=== PATIENT | male | born 1955 | race Caucasian/White ===

== ENCOUNTER 2018-01-22 09:33 | Emergency (ER) | payer OTHER ==
[2012-01-27 11:20] VITALS: BP 142/93
[2018-01-22 09:48] VITALS: O2SAT 97
[2018-01-22] MEDS ORDERED: Sodium Chloride 0.9% 1000 ML 1,000 ML IV SCH (10:00)
[2018-01-22] MEDS ORDERED: Zofran 4 MG/2 ML VIAL IV ONE (10:05)
[2018-01-22 10:07] LABS: BASOPHIL % 0.4 % (0.0-0.4); Basophil (Absolute #) 0.03 (0-0.4); Eosinophil % 1.3 % (0.00-5.0); Granulocyte Absolute (ANC) 5.96 (1.4-6.9); Granulocytes % 74.5 % (36.0-66.0); Hematocrit 46.9 % (42-50); Lymphocyte (Absolute #) 1.31 (1.0-4.6); Lymphocytes % 16.4 % (24.0-44.0); Mean Cell Volume 85.6 fl (78-100); Mean Corpuscular Hemoglobin 29.2 pg (26-32); Mean Corpuscular Hgb Concent. 34.1 g/dl (32-36); Mean Platelet Volume 8.7 fl (6-9.5); Monocyte (Absolute #) 0.59 (0.0-1.3); Monocytes % 7.4 % (0.0-12.0); Platelet Count 260 K/mm3 (150-450); Red Blood Count 5.48 M/mm3 (4.1-5.6); Red Cell Distribution Width 13.1 % (11.5-14.0)
[2018-01-22] MEDS ORDERED: Zofran 4 MG/2 ML VIAL ONE (10:13)
[2018-01-22] MEDS ORDERED: Sodium Chloride 0.9% 1000 ML 1,000 ML ONE (10:13)
[2018-01-22 10:20] LABS: ALBUMIN 4.7 g/dL (3.5-5.0); ALKALINE PHOSPHATASE 73 U/L (38-126); AMYLASE 69 U/L (30-110); ANION GAP 12.7 MEQ/L (5-15); BLOOD UREA NITROGEN 11 mg/dL (9-20); CHLORIDE 105 mmol/L (98-107); Calcium 9.6 mg/dL (8.4-10.2); Carbon Dioxide 26 mmol/L (22-30); Creatinine 1 0.97 mg/dL (0.66-1.25); Glucose 100 mg/dL (74-106); LIPASE 85 U/L (23-300); Potassium 4.3 mmol/L (3.5-5.1); SGOT/AST 41 U/L (17-59); SGPT/ALT 45 U/L (0-50); SODIUM 139 mmol/L (137-145); Total Protein 7.9 g/dL (6.3-8.2)
--- NOTE | 2018-01-22 10:33 | ERPHSYRPT ---
- History of Present Illness Time Seen by Provider: 01/22/18 10:00 Historian: patient Exam Limitations: clinical condition Patient Subjective Stated Complaint: pt here for pain to left side of abd for 4 weeks now and is beng treated by [employer], and he states pain is not easing Triage Nursing Assessment: pt alert, walked in, resp easy, skin w/d/p, abd soft , no edema, co nausea n vomiting Physician History: PATIENT WITH A HISTORY OF DIVERTICULITIS COMPLAINS OF LEFT-SIDED ABDOMINAL PAIN FOR 4 WEEKS. PATIENT STARTED TAKING LEFT OVER ANTIBIOTICS LEVAQUIN 8 DAYS AGO AND WAS EVALUATED BY HIS PRIMARY CARE PROVIDER 6 DAYS AGO AND PLACED ON ANTIBIOTICS CIPRO AND FLAGYL. STATES HIS PAIN IS A 7/10 ASSOCIATED WITH NAUSEA. DENIES VOMITING, DIARRHEA, FEVER, URINARY SYMPTOMS Timing/Duration: week(s) Activities at Onset: none Quality: cramping, stabbing Abdominal Pain Onset Location: LLQ, suprapubic Pain Radiation: no radiation Severity of Pain-Max: moderate Severity of Pain-Current: moderate Modifying Factors: Improves With: eating Associated Symptoms: loss of appetite, nausea Previous symptoms: same symptoms as today Allergies/Adverse Reactions: Penicillins Allergy (Severe, Verified 01/22/18 09:48) STOPPED BREATHING Sulfa (Sulfonamide Antibiotics) [Sulfa(Sulfonamide Antibiotics)] Allergy (Severe , Verified 01/22/18 09:48) STOPPED BREATHING morphine Allergy (Intermediate, Verified 01/22/18 09:48) hives, vomiting hydrocodone Adverse Reaction (Mild, Verified 01/22/18 09:48) hives, nausea lidocaine Adverse Reaction (Mild, Verified 01/22/18 09:48) Hives Home Medications: Ciprofloxacin HCl [Cipro] 500 mg BID 01/22/18 [History] Metronidazole 500 mg TID 01/22/18 [History] levoFLOXacin [Levofloxacin] 500 mg DAILY 01/22/18 [History] Hx Tetanus, Diphtheria Vaccination/Date Given: No Hx Influenza Vaccination/Date Given: Yes Hx Pneumococcal Vaccination/Date Given: No Immunizations Up to Date: Yes - Review of Systems Constitutional: No Fever, No Chills Eyes: No Symptoms Ears, Nose, & Throat: No Symptoms Respiratory: No Symptoms, No Cough, No Dyspnea Cardiac: No Symptoms, No Chest Pain, No Edema, No Syncope Abdominal/Gastrointestinal: Abdominal Pain, No Nausea, No Vomiting, No Diarrhea Genitourinary Symptoms: No Symptoms, No Dysuria Musculoskeletal: No Symptoms, No Back Pain, No Neck Pain Skin: No Rash Neurological: No Dizziness, No Focal Weakness, No Sensory Changes Psychological: No Symptoms Endocrine: No Symptoms All Other Systems: Reviewed and Negative - Past Medical History Pertinent Past Medical History: Yes Neurological History: No Pertinent History ENT History: No Pertinent History Cardiac History: No Pertinent History Respiratory History: No Pertinent History Endocrine Medical History: No Pertinent History Musculoskeletal History: Osteoarthritis GI Medical History: Diverticulitis History: No Pertinent History Psycho-Social History: No Pertinent History Male Reproductive Disorders: No Pertinent History - Past Surgical History Past Surgical History: Yes Neuro Surgical History: No Pertinent History Cardiac: No Pertinent History Respiratory: No Pertinent History Gastrointestinal: Hemorrhoidectomy Genitourinary: No Pertinent History Musculoskeletal: Orthopedic Surgery Male Surgical History: Vasectomy Other Surgical History: neck disc replaced. bilateral knee scope - Social History Smoking Status: Never smoker How long have you smoked: 2-5years Exposure to second hand smoke: No Drug Use: none Patient Lives Alone: No - Nursing Vital Signs Nursing Vital Signs: Initial Vital Signs Temperature 97.8 F 01/22/18 09:39 Pulse Rate 51 L 01/22/18 09:39 Respiratory Rate 16 01/22/18 09:39 Blood Pressure 143/119 01/22/18 09:39 O2 Sat by Pulse Oximetry 97 01/22/18 09:39 Pain Scale Pain Intensity 7 - Physical Exam General Appearance: mild distress, alert Eye Exam: PERRL/EOMI Ears, Nose, Throat Exam: normal ENT inspection Neck Exam: normal inspection Respiratory Exam: normal breath sounds Cardiovascular Exam: regular rate/rhythm Gastrointestinal/Abdomen Exam: soft, normal bowel sounds, tenderness (LLQ AND SUPRAPUBIC TENDERNESS) Rectal Exam: normal exam, normal rectal tone Back Exam: normal inspection Extremity Exam: normal inspection Neurologic Exam: alert, oriented x 3 SpO2 Interpretation: normal SpO2: 97 Oxygen Delivery: Room Air - CT Exams Abdomen/Pelvis CT Interpretation: Tele-radiologist Report (the gallbladder and bile ducts are normal, no calcified stones no ductal dilatation, kidneys and ureters with subcentimeter cyst of the right with no hydronephrosis. A normal appendix is identified the stomach and small bowel are normal. There is diverticular disease without evidence of acute diverticulitis, no perforation or abscess. the prostate gland is enlarged.) Ordered Tests: Active Orders 24 hr Category Date Time Status IV Insertion STAT Care 01/22/18 09:57 Active ABDOMEN AND PELVIS W CONTRAST [CT] Stat Exams 01/22/18 09:58 Ordered AMYLASE Stat Lab 01/22/18 10:00 Completed CBC W DIFF Stat Lab 01/22/18 10:00 Completed CMP Stat Lab 01/22/18 10:00 Completed LIPASE Stat Lab 01/22/18 10:00 Completed MAGNESIUM Stat Lab 01/22/18 10:00 Completed Occult Blood,Stool Other Stat Lab 01/22/18 10:45 Completed UA W/RFX UR CULTURE Stat Lab 01/22/18 10:45 Completed Medication Summary Generic Name Dose Route Start Last Admin Trade Name Freq PRN Reason Stop Dose Admin Sodium Chloride 1,000 mls @ 500 mls/hr 01/22/18 10:00 01/22/18 10:16 Sodium Chloride 0.9% 1000 Ml IV 02/21/18 09:59 500 mls/hr .Q2H FRANCES Administration Discontinued Medications Generic Name Dose Route Start Last Admin Trade Name Freq PRN Reason Stop Dose Admin Fentanyl Citrate 100 mcg 01/22/18 10:54 01/22/18 10:58 Sublimaze 100 Mcg/2 Ml IV 01/22/18 10:55 100 mcg STAT ONE Administration Fentanyl Citrate Confirm 01/22/18 10:57 Sublimaze 100 Mcg/2 Ml Administered 01/22/18 10:58 Dose 100 mcg .ROUTE .STK-MED ONE Hydromorphone HCl 1 mg 01/22/18 10:35 01/22/18 11:04 Hydromorphone 1 Mg/Ml Ampule IV 01/22/18 10:36 Not Given STAT ONE Ondansetron HCl 4 mg 01/22/18 10:05 01/22/18 10:16 Zofran 4 Mg/2 Ml Vial IV 01/22/18 10:06 4 mg STAT ONE Administration Ondansetron HCl Confirm 01/22/18 10:13 Zofran 4 Mg/2 Ml Vial Administered 01/22/18 10:14 Dose 4 mg .ROUTE .STK-MED ONE Lab/Rad Data: Laboratory Result Diagrams 01/22/18 10:00 01/22/18 10:00 Laboratory Results 01/22/18 01/22/18 01/22/18 Range/Units 10:45 10:45 10:00 WBC (4.0-10.5) K/mm3 RBC (4.1-5.6) M/mm3 Hgb (12.5-18.0) gm/dl Hct (42-50) % MCV (78-100) fl MCH (26-32) pg MCHC (32-36) g/dl RDW (11.5-14.0) % Plt Count (150-450) K/mm3 MPV (6-9.5) fl Gran % (36.0-66.0) % Eos # (Auto) (0-0.5) Absolute Lymphs (auto) (1.0-4.6) Absolute Monos (auto) (0.0-1.3) Lymphocytes % (24.0-44.0) % Monocytes % (0.0-12.0) % Eosinophils % (0.00-5.0) % Basophils % (0.0-0.4) % Absolute Granulocytes (1.4-6.9) Basophils # (0-0.4) Sodium (137-145) mmol/L Potassium (3.5-5.1) mmol/L Chloride (98-107) mmol/L Carbon Dioxide (22-30) mmol/L Anion Gap (5-15) MEQ/L BUN (9-20) mg/dL Creatinine (0.66-1.25) mg/dL Estimated GFR ML/MIN Glucose (74-106) mg/dL Calcium (8.4-10.2) mg/dL Magnesium 2.2 (1.6-2.3) mg/dL Total Bilirubin (0.2-1.3) mg/dL AST (17-59) U/L ALT (0-50) U/L Alkaline Phosphatase (38-126) U/L Serum Total Protein (6.3-8.2) g/dL Albumin (3.5-5.0) g/dL Amylase (30-110) U/L Lipase (23-300) U/L Urine Color YELLOW (YELLOW) Urine Appearance CLEAR (CLEAR) Urine pH 6.0 (5-6) Ur Specific [place] 1.013 (1.005-1.025) Urine Protein NEGATIVE (Negative) Urine Ketones NEGATIVE (NEGATIVE) Urine Blood NEGATIVE (0-5) Henry/ul Urine Nitrite NEGATIVE (NEGATIVE) Urine Bilirubin NEGATIVE (NEGATIVE) Urine Urobilinogen NEGATIVE (0-1) mg/dL Ur Leukocyte Esterase NEGATIVE (NEGATIVE) Urine WBC (Auto) NONE (0-5) /HPF Urine RBC (Auto) NONE (0-2) /HPF U Epithel Cells (Auto) NONE (FEW) /HPF Urine Bacteria (Auto) NONE (NEGATIVE) /HPF Urine Mucus (Auto) SLIGHT (NEGATIVE) /HPF Urine Culture Reflexed NO (NO) Urine Glucose NEGATIVE (NEGATIVE) mg/dL Stool Occult Blood NEGATIVE (Negative) 01/22/18 01/22/18 Range/Units 10:00 10:00 WBC 8.0 (4.0-10.5) K/mm3 RBC 5.48 (4.1-5.6) M/mm3 Hgb 16.0 (12.5-18.0) gm/dl Hct 46.9 (42-50) % MCV 85.6 (78-100) fl MCH 29.2 (26-32) pg MCHC 34.1 (32-36) g/dl RDW 13.1 (11.5-14.0) % Plt Count 260 (150-450) K/mm3 MPV 8.7 (6-9.5) fl Gran % 74.5 H (36.0-66.0) % Eos # (Auto) 0.10 (0-0.5) Absolute Lymphs (auto) 1.31 (1.0-4.6) Absolute Monos (auto) 0.59 (0.0-1.3) Lymphocytes % 16.4 L (24.0-44.0) % Monocytes % 7.4 (0.0-12.0) % Eosinophils % 1.3 (0.00-5.0) % Basophils % 0.4 (0.0-0.4) % Absolute Granulocytes 5.96 (1.4-6.9) Basophils # 0.03 (0-0.4) Sodium 139 (137-145) mmol/L Potassium 4.3 (3.5-5.1) mmol/L Chloride 105 (98-107) mmol/L Carbon Dioxide 26 (22-30) mmol/L Anion Gap 12.7 (5-15) MEQ/L BUN 11 (9-20) mg/dL Creatinine 0.97 (0.66-1.25) mg/dL Estimated GFR > 60.0 ML/MIN Glucose 100 (74-106) mg/dL Calcium 9.6 (8.4-10.2) mg/dL Magnesium (1.6-2.3) mg/dL Total Bilirubin 0.50 (0.2-1.3) mg/dL AST 41 (17-59) U/L ALT 45 (0-50) U/L Alkaline Phosphatase 73 (38-126) U/L Serum Total Protein 7.9 (6.3-8.2) g/dL Albumin 4.7 (3.5-5.0) g/dL Amylase 69 (30-110) U/L Lipase 85 (23-300) U/L Urine Color (YELLOW) Urine Appearance (CLEAR) Urine pH (5-6) Ur Specific [place] (1.005-1.025) Urine Protein (Negative) Urine Ketones (NEGATIVE) Urine Blood (0-5) Henry/ul Urine Nitrite (NEGATIVE) Urine Bilirubin (NEGATIVE) Urine Urobilinogen (0-1) mg/dL Ur Leukocyte Esterase (NEGATIVE) Urine WBC (Auto) (0-5) /HPF Urine RBC (Auto) (0-2) /HPF U Epithel Cells (Auto) (FEW) /HPF Urine Bacteria (Auto) (NEGATIVE) /HPF Urine Mucus (Auto) (NEGATIVE) /HPF Urine Culture Reflexed (NO) Urine Glucose (NEGATIVE) mg/dL Stool Occult Blood (Negative) - Progress Progress Note: 01/22/18 10:34 ADMINISTERED IV NORMAL SALINE 500ML/HR, ZOFRAN 4MG IV - Departure Time of Disposition: 12:28 Departure Disposition: Home Clinical Impression: CHRONIC ABDOMINAL PAIN Condition: Stable Critical Care Time: No Referrals: LAVON GONCALVES MD [Primary Care Provider] - Additional Instructions: DISCONTINUE YOUR CURRENT ANTIBIOTICS. BEGIN UTRAM 50 MG EVERY 6 HOURS NEEDED FOR PAIN DISCOMFORT. ZOFRAN 4MG EVERY 6 HOURS FOR NAUSEA NEEDED. CONSULT YOUR PRIMARY CARE PROVIDER FOR REFERRAL TO GASTROINTESTINAL SPECIALIST. Prescriptions: Ondansetron ODT 4 MG [Zofran Odt 4 mg] 4 mg PO Q6H PRN PRN #10 tab.rapdis PRN Reason: Nausea Tramadol HCl 50 mg [Ultram 50 mg] 50 mg PO Q6H PRN PRN #20 tablet PRN Reason: Pain
[2018-01-22] MEDS ORDERED: Hydromorphone 1 mg/ml Ampule IV ONE (10:35)
[2018-01-22] MEDS ORDERED: SUBLIMAZE 100 MCG/2 ML IV ONE (10:54)
[2018-01-22] MEDS ORDERED: SUBLIMAZE 100 MCG/2 ML ONE (10:57)
[2018-01-22 11:07] VITALS: BP 148/99; PULSE 73
[2018-01-22 11:12] LABS: Appearance CLEAR (CLEAR); Bilirubin NEGATIVE (NEGATIVE); Blood NEGATIVE Ery/ul (0-5); Glucose NEGATIVE (NEGATIVE); Ketones NEGATIVE (NEGATIVE); Leukocyte Esterase NEGATIVE (NEGATIVE); Nitrite NEGATIVE (NEGATIVE); Protein,Urine Dip NEGATIVE (Negative); Specific Gravity 1.013 (1.005-1.025); Urobilinogen NEGATIVE mg/dL (0-1)
--- NOTE | 2018-01-22 15:48 | XRAY ---
Indication: Left lower quadrant pain. History diverticulitis. Multiple contiguous axial images obtained through the abdomen and pelvis using 80 cc Isovue-370 contrast only. Comparison: April 16, 2015. Lung bases again demonstrates left base fibrosis/scarring. No infiltrate or effusion. Heart is not enlarged. New small hiatal hernia but not seen on delayed imaging favoring sliding type. Noncontrasted stomach and bowel loops appear nonobstructed. Normal appendix. There is now mild diffuse scattered colonic fecal debris. Again scattered colonic diverticulosis with now mild/early diverticulitis at the junction of the descending and sigmoid colon. No free fluid/air or perforation. Stable right lobe hepatic hemangioma and tiny right renal cyst. Remaining liver, gallbladder, pancreas, spleen, adrenal glands, kidneys, ureters, and bladder appear unremarkable. There remains mild aortoiliac calcifications. No AAA or pathologic retroperitoneal lymphadenopathy. Osseous structures intact again with mild degenerative changes throughout the spine and old left 7/8 rib fractures. No ventral or inguinal hernia. Impression: 1. Again colonic diverticulosis with now mild/early diverticulitis at junction of descending and sigmoid colon. No complications. 2. Fecal stasis without obstruction. 3. New small sliding-type hiatal hernia. 4. Stable hepatic hemangioma and right renal cyst. Comment: Preliminary interpretation was made by [facility] who does not report the diverticulitis. Telephone report was given to the ordering clinician, Dr. Apodaca at 1539 hrs. on January 22, 2018. CTDI 21.22
== END 2018-01-22 12:35 | disposition home or self-care (01) ==
LOC: ED 09:33
DX: R10.32 Left lower quadrant pain (principal); Z79.899 Other long term (current) drug therapy; Z87.19 Personal history of other diseases of the digestive system
CPT/HCPCS: 36000; 36415; 74177; 80053; 81001; 82150; 82272; 83690; 83735; 85025; 96360; 96361; 96374; 96375; 99284; J2405; J3010

== ENCOUNTER 2018-01-22 16:35 | Observation (INO) | payer OTHER ==
--- NOTE | 2018-01-22 16:49 | ERPHSYRPT ---
- History of Present Illness Historian: patient Exam Limitations: clinical condition Physician History: PATIENT WITH A HISTORY OF AND DIVERTICULITIS WAS EVALUATED FOR LEFT SIDED ABDOMINAL PAIN FOR 4 WEEKS, IN THE EMERGENCY ROOM EARLIER TODAY WITH RESULTS OF A NEGATIVE ABDOMINAL PELVIC CT SCAN WITH INTRAVENOUS CONTRAST AND A NORMAL WHITE BLOOD CELL COUNT OF 8,000 AND WAS DISCHARGED HOME. HOWEVER THE HOSPITAL RADIOLOGIST READ THE ABDOMINAL PELVIC CT SCAN DIFFERENT THAN VIRTUAL RADIOLOGIST COLONIC DIVERTICULOSIS WITH NOW MILD/EARLY DIVERTICULITIS AT THE JUNCTION OF THE DISTAL DESCENDING AND SIGMOID COLON. PATIENT DENIES FEVER, NAUSEA, EMESIS OR DIARRHEA, Timing/Duration: week(s) Activities at Onset: none Quality: throbbing Abdominal Pain Onset Location: LLQ Pain Radiation: no radiation Severity of Pain-Max: moderate Severity of Pain-Current: moderate Modifying Factors: Improves With: nothing Associated Symptoms: nausea Previous symptoms: same symptoms as today Allergies/Adverse Reactions: Penicillins Allergy (Severe, Verified 01/22/18 16:54) STOPPED BREATHING Sulfa (Sulfonamide Antibiotics) [Sulfa(Sulfonamide Antibiotics)] Allergy (Severe , Verified 01/22/18 16:54) STOPPED BREATHING morphine Allergy (Intermediate, Verified 01/22/18 16:54) hives, vomiting hydrocodone Adverse Reaction (Mild, Verified 01/22/18 16:54) hives, nausea lidocaine Adverse Reaction (Mild, Verified 01/22/18 16:54) Hives Home Medications: Ciprofloxacin HCl [Cipro] 500 mg BID 01/22/18 [History] Metronidazole 500 mg TID 01/22/18 [History] levoFLOXacin [Levofloxacin] 500 mg DAILY 01/22/18 [History] Hx Tetanus, Diphtheria Vaccination/Date Given: No Hx Influenza Vaccination/Date Given: Yes Hx Pneumococcal Vaccination/Date Given: No - Review of Systems Constitutional: No Fever, No Chills Eyes: No Symptoms Ears, Nose, & Throat: No Symptoms Respiratory: No Symptoms, No Cough, No Dyspnea Cardiac: No Symptoms, No Chest Pain, No Edema, No Syncope Abdominal/Gastrointestinal: Abdominal Pain, No Nausea, No Vomiting, No Diarrhea Genitourinary Symptoms: No Symptoms, No Dysuria Musculoskeletal: No Symptoms, No Back Pain, No Neck Pain Skin: No Symptoms, No Rash Neurological: No Dizziness, No Focal Weakness, No Sensory Changes Psychological: No Symptoms Endocrine: No Symptoms All Other Systems: Reviewed and Negative - Past Medical History Pertinent Past Medical History: Yes Neurological History: No Pertinent History ENT History: No Pertinent History Cardiac History: No Pertinent History Respiratory History: No Pertinent History Endocrine Medical History: No Pertinent History Musculoskeletal History: Osteoarthritis GI Medical History: Diverticulitis History: No Pertinent History Psycho-Social History: No Pertinent History Male Reproductive Disorders: No Pertinent History - Past Surgical History Past Surgical History: Yes Neuro Surgical History: No Pertinent History Cardiac: No Pertinent History Respiratory: No Pertinent History Gastrointestinal: Hemorrhoidectomy Genitourinary: No Pertinent History Musculoskeletal: Orthopedic Surgery Male Surgical History: Vasectomy Other Surgical History: neck disc replaced. bilateral knee scope - Social History Smoking Status: Never smoker How long have you smoked: 2-5years Exposure to second hand smoke: No Drug Use: none Patient Lives Alone: No - Nursing Vital Signs Nursing Vital Signs: Initial Vital Signs Temperature 98.5 F 01/22/18 16:41 Pulse Rate 72 01/22/18 16:41 Respiratory Rate 20 01/22/18 16:41 Blood Pressure 132/93 01/22/18 16:41 O2 Sat by Pulse Oximetry 98 01/22/18 16:41 Pain Scale Pain Intensity 3 - Physical Exam General Appearance: no apparent distress, alert Eye Exam: PERRL/EOMI, eyes nml inspection Ears, Nose, Throat Exam: normal ENT inspection, pharynx normal, moist mucous membranes Neck Exam: normal inspection, non-tender, supple, full range of motion Respiratory Exam: normal breath sounds, lungs clear, No respiratory distress Cardiovascular Exam: regular rate/rhythm, normal heart sounds Gastrointestinal/Abdomen Exam: soft, normal bowel sounds, tenderness (LEFT LOWER QUAD TENDERNESS), No mass Back Exam: normal inspection, normal range of motion, No CVA tenderness, No vertebral tenderness Extremity Exam: normal inspection, normal range of motion, pelvis stable Neurologic Exam: alert, oriented x 3, cooperative, normal mood/affect, nml cerebellar function, sensation nml, No motor deficits Skin Exam: normal color, warm, dry SpO2 Interpretation: normal SpO2: 98 Oxygen Delivery: Room Air Ordered Tests: Active Orders 24 hr Category Date Time Status Up Ad Jennifer ROUTINE Activity 01/22/18 17:19 Active Call Admit Doctor for Orders ON ADMISSION Care 01/22/18 17:18 Active Code Status Order ROUTINE Care 01/22/18 17:18 Active IV Care Q6H Care 12/15/18 17:[address] in Observation ROUTINE Care 01/22/18 17:18 Active Vital Signs Q4H Care 01/22/18 17:18 Active NPO except Meds Diet 01/22/18 17:19 Active Transfer Order Routine Transfer 01/22/18 Ordered Medication Summary Generic Name Dose Route Start Last Admin Trade Name Mandeep PRN Reason Stop Dose Admin Acetaminophen 650 mg 01/22/18 17:18 Tylenol 325 Mg PO 02/21/18 17:17 Q4H PRN PRN PAIN AND/OR FEVER Hydromorphone HCl 1 mg 01/22/18 17:18 Dilaudid 2 Mg Injection IV 01/27/18 17:17 Q4H PRN PRN PAIN Sodium Chloride 1,000 mls @ 125 mls/hr 01/22/18 17:00 01/22/18 17:07 Sodium Chloride 0.9% 1000 Ml IV 02/21/18 16:59 125 mls/hr .Q8H FRANCES Administration Levofloxacin/Dextrose 500 mg in 100 mls @ 100 mls/hr 01/22/18 16:52 01/22/18 17:07 Levofloxacin 500mg/100ml D5w IV 01/22/18 17:51 100 ml/hr STAT STA 100 mls/hr Administration Levofloxacin/Dextrose 500 mg in 100 mls @ 100 mls/hr 01/23/18 10:00 Levofloxacin 500mg/100ml D5w IV 02/22/18 09:59 Q24H10 FRANCES Metronidazole 500 mg in 100 mls @ 200 mls/hr 01/22/18 18:00 Flagyl 500 Mg Ivpb IV 02/21/18 17:59 Q6HT FRANCES Ondansetron HCl 4 mg 01/22/18 17:18 Zofran 4 Mg/2 Ml Vial IV 02/21/18 17:17 Q6H PRN PRN NAUSEA/VOMITING Discontinued Medications Generic Name Dose Route Start Last Admin Trade Name Freema PRN Reason Stop Dose Admin Levofloxacin/Dextrose Confirm 01/22/18 16:58 Levofloxacin 500mg/100ml D5w Administered 01/22/18 16:59 Dose 500 mg in 100 mls @ ud IV .STK-MED ONE - Progress Progress Note: 01/22/18 16:50 IV NORMAL SALINE 125ML/HR, LEVAQUIN 500MG IVPB Discussed with : Deanna (DISCUSSED WITH DR CORTÉS AT 1710 FOR OBSERVATION) - Departure Time of Disposition: 17:25 Departure Disposition: In-patient Admission, Observation Clinical Impression: ACUTE DIVERTICULITIS Condition: Stable Critical Care Time: No Referrals: LAVON GONCALVSE MD [Primary Care Provider] -
[2018-01-22] MEDS ORDERED: Levofloxacin 500MG/100ML D5W 500 MG/100 ML BAG IV STA (16:52)
[2018-01-22] MEDS ORDERED: Levofloxacin 500MG/100ML D5W 500 MG/100 ML BAG IV ONE (16:58)
[2018-01-22] MEDS: Sodium Chloride 0.9% 1000 ML 1,000 ML IV SCH (17:07)
[2018-01-22] MEDS ORDERED: TYLENOL 325 MG PO PRN (17:18)
[2018-01-22] MEDS ORDERED: Zofran 4 MG/2 ML VIAL IV PRN (17:18)
[2018-01-22] MEDS: FLAGYL 500 MG IVPB 500 MG/100 ML BAG IV SCH ×2 (18:16→23:08)
[2018-01-22] MEDS: DILAUDID 2 MG INJECTION IV PRN (22:40)
[2018-01-23] MEDS: Sodium Chloride 0.9% 1000 ML 1,000 ML IV SCH ×2 (00:51→14:51)
[2018-01-23 05:27] LABS: BASOPHIL % 0.3 % (0.0-0.4); Basophil (Absolute #) 0.02 (0-0.4); Eosinophil (Absolute #) 0.12 (0-0.5); Granulocyte Absolute (ANC) 3.87 (1.4-6.9); Hematocrit 43.3 % (42-50); Hemoglobin 14.5 gm/dl (12.5-18.0); Lymphocyte (Absolute #) 1.46 (1.0-4.6); Lymphocytes % 24.5 % (24.0-44.0); Mean Cell Volume 87.8 fl (78-100); Mean Corpuscular Hemoglobin 29.4 pg (26-32); Mean Corpuscular Hgb Concent. 33.5 g/dl (32-36); Mean Platelet Volume 8.8 fl (6-9.5); Monocyte (Absolute #) 0.49 (0.0-1.3); Monocytes % 8.2 % (0.0-12.0); Platelet Count 238 K/mm3 (150-450); Red Blood Count 4.93 M/mm3 (4.1-5.6); Red Cell Distribution Width 13.3 % (11.5-14.0)
[2018-01-23 05:49] LABS: ANION GAP 9.5 MEQ/L (5-15); BLOOD UREA NITROGEN 12 mg/dL (9-20); CHLORIDE 107 mmol/L (98-107); Calcium 8.5 mg/dL (8.4-10.2); Carbon Dioxide 25 mmol/L (22-30); Creatinine 1 0.89 mg/dL (0.66-1.25); Glucose 94 mg/dL (74-106); Potassium 4.3 mmol/L (3.5-5.1); SODIUM 137 mmol/L (137-145)
[2018-01-23] MEDS: FLAGYL 500 MG IVPB 500 MG/100 ML BAG IV SCH ×4 (05:53→23:25)
[2018-01-23] MEDS ORDERED: Levofloxacin 500MG/100ML D5W 500 MG/100 ML BAG IV SCH (10:00)
[2018-01-23] MEDS ORDERED: ULTRAM 50 MG PO PRN (12:46)
--- NOTE | 2018-01-23 13:16 | PCM.HP ---
History of Present Illness - Chief Complaint Chief Complaint: ACUTE DIVERTICULITIS History of Present Illness: is a 62 year old male pt of Dr. Valencia who came to ER last night complaining of LLQ pain for 1 mo, worse x 10 days. He had seen Heber Mendez NP and was given po cipro 500 BID and po flagl 500 TID about 10d ago. He does not like to take medicine so was taking cipro once daily and flagyl BID. The past 3 d he took some levaquin that he had at home. Yesterday the pain was worse so he came to ER. Pain was in LLQ, sharp, radiating to suprapubic area, 7/10, no fever, no V/D. He was given IV levaquin and flagyl and this morning his pain is much improved. He tolerated CLD. Initially his CT abd/pelvis was read as negative, and in light of his non acute labs, he was sent home. Then Dr. Castro did an overread and found early diverticulitis so he was called at about 4 a.m. and asked to come back to the hospital. - Review of Systems Constitutional: No Fever Abdominal/Gastrointestinal: Abdominal Pain Musculoskeletal: Back Pain (chronic but worse in the past 1 mo) Neurological: Headache (chronic) Psychological: No Anxiety, No Depression, No Suicidal Ideations All Other Systems: Reviewed and Negative Medications & Allergies Home Medications: Home Medication List Ciprofloxacin HCl [Cipro] 500 mg BID 01/22/18 [History Confirmed 01/22/18] Metronidazole 500 mg TID 01/22/18 [History Confirmed 01/22/18] Ondansetron ODT 4 MG [Zofran Odt 4 mg] 4 mg PO Q6H PRN PRN #10 tab.rapdis 01/22/18 [Rx Confirmed 01/22/18] Tramadol HCl 50 mg [Ultram 50 mg] 50 mg PO Q6H PRN PRN #20 tablet [Rx Confirmed 01/22/18] levoFLOXacin [Levofloxacin] 500 mg DAILY 01/22/18 [History Confirmed 01/22/18] Allergies/Adverse Reactions: Allergies Allergy/AdvReac Type Severity Reaction Status Date / Time Penicillins Allergy Severe STOPPED Verified 01/22/18 16:54 BREATHING Sulfa (Sulfonamide Allergy Severe STOPPED Verified 01/22/18 16:54 Antibiotics) BREATHING [Sulfa(Sulfonamide Antibiotics)] morphine Allergy Intermediate hives, Verified 01/22/18 16:54 vomiting hydrocodone AdvReac Mild hives, Verified 01/22/18 16:54 nausea lidocaine AdvReac Mild Hives Verified 01/22/18 16:54 - Past Medical History Past Medical History: Yes Neurological History: No Pertinent History ENT History: No Pertinent History Cardiac History: No Pertinent History Respiratory History: Bronchitis Endocrine Medical History: No Pertinent History Musculoskelatal History: Osteoarthritis GI Medical History: Diverticulitis History: No Pertinent History Pyscho-Social History: No Pertinent History Male Reproductive Disorders: No Pertinent History - Past Surgical History Past Surgical History: Yes Neuro Surgical History: No Pertinent History Cardiac History: No Pertinent History Respiratory Surgery: No Pertinent History GI Surgical History: Hemorrhoidectomy Genitourinary Surgical Hx: No Pertinent History Musculskeletal Surgical Hx: Orthopedic Surgery Male Surgical History: Vasectomy Other Surgical History: neck disc replaced. bilateral knee scope - Social History Smoking Status: Never smoker How long have you smoked: 2-5years Exposure to second hand smoke: No Alcohol: None Drug Use: none - Physical Exam Vital Signs: Vital Signs - 24 hr Temp Pulse Resp BP Pulse Ox 01/23/18 12:00 97.9 F 73 18 127/81 95 01/23/18 07:36 97.8 F 69 18 120/77 97 01/23/18 03:59 97.8 F 69 18 117/76 97 01/22/18 23:40 98.3 F 76 18 135/75 97 01/22/18 19:30 98.4 F 78 18 140/83 97 01/22/18 17:48 98.4 F 78 18 140/83 97 01/22/18 17:21 98 01/22/18 16:41 98.5 F 72 20 132/93 98 General Appearance: no apparent distress, alert Neurologic Exam: oriented x 3, cooperative Eye Exam: eyes nml inspection Ears, Nose, Throat Exam: moist mucous membranes Neck Exam: normal inspection, supple Respiratory Exam: normal breath sounds, lungs clear, No crackles/rales, No rhonchi, No wheezing Cardiovascular Exam: regular rate/rhythm, normal heart sounds, No murmur Gastrointestinal/Abdomen Exam: soft, normal bowel sounds, No tenderness, No distention, No mass, No guarding, No rebound Extremity Exam: normal inspection, No pedal edema, No swelling Skin Exam: normal color, warm, dry, No rash Results - Labs Lab/Micro Results: Lab Results-Last 24 Hours 01/23/18 01/23/18 Range/Units 05:20 05:20 WBC 6.0 (4.0-10.5) K/mm3 RBC 4.93 (4.1-5.6) M/mm3 Hgb 14.5 (12.5-18.0) gm/dl Hct 43.3 (42-50) % MCV 87.8 (78-100) fl MCH 29.4 (26-32) pg MCHC 33.5 (32-36) g/dl RDW 13.3 (11.5-14.0) % Plt Count 238 (150-450) K/mm3 MPV 8.8 (6-9.5) fl Gran % 65.0 (36.0-66.0) % Eos # (Auto) 0.12 (0-0.5) Absolute Lymphs (auto) 1.46 (1.0-4.6) Absolute Monos (auto) 0.49 (0.0-1.3) Lymphocytes % 24.5 (24.0-44.0) % Monocytes % 8.2 (0.0-12.0) % Eosinophils % 2.0 (0.00-5.0) % Basophils % 0.3 (0.0-0.4) % Absolute Granulocytes 3.87 (1.4-6.9) Basophils # 0.02 (0-0.4) Sodium 137 (137-145) mmol/L Potassium 4.3 (3.5-5.1) mmol/L Chloride 107 (98-107) mmol/L Carbon Dioxide 25 (22-30) mmol/L Anion Gap 9.5 (5-15) MEQ/L BUN 12 (9-20) mg/dL Creatinine 0.89 (0.66-1.25) mg/dL Estimated GFR > 60.0 ML/MIN Glucose 94 (74-106) mg/dL Calcium 8.5 (8.4-10.2) mg/dL Assessment/Plan (1) Diverticulitis Current Visit: No Status: Acute Assessment & Plan: He is feeling much better, but has been here less than 12 hours. I advised him to stay until tomorrow and get more IV antibiotics in light of the long course of his illness (also, in light of his noncompliance with medications). He agrees to stay. I did explain the rationale behind taking meds BID or TID and he seems to understand.
[2018-01-23] MEDS: DILAUDID 2 MG INJECTION IV PRN (23:33)
[2018-01-24 03:48] VITALS: O2SAT 96
[2018-01-24] MEDS: FLAGYL 500 MG IVPB 500 MG/100 ML BAG IV SCH (05:12)
[2018-01-24 07:17] VITALS: BP 124/79; PULSE 84
[2018-01-24] MEDS: Sodium Chloride 0.9% 1000 ML 1,000 ML IV SCH (08:00)
--- NOTE | 2018-01-24 08:17 | PCM.DS ---
Discharge Summary Date of Admission: 01/22/18 17:41 Admitting Physician: AMEENA CORTÉS Primary Care Provider: LAVON GONCALVES Allergies Allergies Penicillins Allergy (Severe, Verified 01/22/18 16:54) STOPPED BREATHING Sulfa (Sulfonamide Antibiotics) [Sulfa(Sulfonamide Antibiotics)] Allergy (Severe , Verified 01/22/18 16:54) STOPPED BREATHING morphine Allergy (Intermediate, Verified 01/22/18 16:54) hives, vomiting hydrocodone Adverse Reaction (Mild, Verified 01/22/18 16:54) hives, nausea lidocaine Adverse Reaction (Mild, Verified 01/22/18 16:54) [facility] Hospital Summary - Hospital Course Hospital Course: patient was admitted with abdominal pain, found to have early diverticulitis. feeling much better since admission, very little pain at this time. - Vitals & Intake/Output Vital Signs: Vital Signs Temperature 98.6 F 01/24/18 07:16 Pulse Rate 84 01/24/18 07:16 Respiratory Rate 18 01/24/18 07:16 Blood Pressure 124/79 01/24/18 07:16 O2 Sat by Pulse Oximetry 96 01/24/18 07:16 Intake & Output: Intake & Output 01/21/18 01/22/18 01/23/18 01/24/18 11:59 11:59 11:59 11:59 Intake Total 3812 4234 Output Total 1300 Balance 2512 4234 Weight 86.5 kg - Lab Result Diagrams: 01/23/18 05:20 01/23/18 05:20 Discharge Exam General Appearance: no apparent distress, alert Neurologic Exam: alert, oriented x 3 Skin Exam: normal color, warm, dry Respiratory Exam: normal breath sounds, lungs clear, No respiratory distress Cardiovascular Exam: regular rate/rhythm, normal heart sounds Gastrointestinal/Abdomen Exam: soft, No tenderness, No mass Extremity Exam: normal inspection, normal range of motion Final Diagnosis/Problem List - Final Discharge Diagnosis/Problem (1) Diverticulitis Current Visit: No Status: Acute Assessment & Plan: home on po levaquin and flagyl - Discharge Disposition: Home, Self-Care Condition: Stable Prescriptions: Continue Ondansetron ODT 4 MG [Zofran Odt 4 mg] 4 mg PO Q6H PRN PRN #10 tab.rapdis PRN Reason: Nausea Tramadol HCl 50 mg [Ultram 50 mg] 50 mg PO Q6H PRN PRN #20 tablet PRN Reason: Pain Changed levoFLOXacin [Levofloxacin] 500 mg PO DAILY #7 tablet Metronidazole 500 mg PO TID #21 tablet Discontinued Ciprofloxacin HCl [Cipro] 500 mg BID Follow up with: LAVON GONCALVES MD [Primary Care Provider] - 02/09/18 11:15 am
== END 2018-01-24 10:27 | disposition home or self-care (01) ==
LOC: ED 16:35 → MED SURG 17:41
PROVIDERS: ADMIT Family Medicine; ATTEND Family Medicine
DX: K57.92 Diverticulitis of intestine, part unspecified, without perforation or abscess without bleeding (principal); M19.90 Unspecified osteoarthritis, unspecified site
CPT/HCPCS: 36000; 36415; 74177; 80048; 80053; 81001; 82150; 82272; 83690; 83735; 85025; 96360; 96361; 96365; 96374; 96375; 99284; 99285; G0378; J1170; J1956; J2405; J3010

== ENCOUNTER 2022-01-11 17:56 | Emergency (ER) | payer MEDICARE, OTHER ==
[2022-01-11] MEDS ORDERED: TORAdol 30 mg Injection IV ONE (18:30)
[2022-01-11] MEDS ORDERED: TORAdol 30 mg Injection ONE (18:32)
[2022-01-11] MEDS ORDERED: Sodium Chloride 0.9% 1000 ML 1,000 ML IV STA (18:53)
[2022-01-11] MEDS ORDERED: Zofran 4 MG/2 ML VIAL IV ONE (18:53)
[2022-01-11 18:58] LABS: Basophil (Absolute #) 0.03 x10^3/uL (0-0.4); Eosinophil % 2.2 % (0.00-5.0); Hematocrit 44.2 % (42-50); Hemoglobin 14.8 g/dL (12.5-18.0); Lymphocyte (Absolute #) 0.73 x10^3/uL (1.0-4.6); Lymphocytes % 15.7 % (24.0-44.0); Mean Cell Volume 88.2 fL (78-100); Mean Corpuscular Hemoglobin 29.5 pg (26-32); Mean Corpuscular Hgb Concent. 33.5 g/dL (32-36); Mean Platelet Volume 9.7 fL (7.5-11.0); Monocyte (Absolute #) 0.77 x10^3/uL (0.0-1.3); Monocytes % 16.6 % (0.0-12.0); Neutrophil % 64.7 % (36.0-66.0); Platelet Count 180 x10^3/uL (150-450); Red Blood Count 5.01 x10^6/uL (4.1-5.6); Red Cell Distribution Width 12.2 % (11.5-14.0); White Blood Count 4.6 x10^3/uL (4.0-10.5)
[2022-01-11 19:05] LABS: ALBUMIN 4.7 g/dL (3.5-5.0); ALKALINE PHOSPHATASE 76 U/L (38-126); ANION GAP 9.4 MEQ/L (5-15); BLOOD UREA NITROGEN 11 mg/dL (9-20); CHLORIDE 101 mmol/L (98-107); Calcium 9.5 mg/dL (8.4-10.2); Carbon Dioxide 29 mmol/L (22-30); Creatinine 1 0.73 mg/dL (0.66-1.25); EST GLOMERULAR FILTRATION RATE > 60.0 ML/MIN; Glucose 86 mg/dL (74-106); LIPASE 380 U/L (23-300); Potassium 3.7 mmol/L (3.5-5.1); SGOT/AST 32 U/L (17-59); SGPT/ALT 44 U/L (0-50); SODIUM 135 mmol/L (137-145); Total Protein 7.8 g/dL (6.3-8.2)
[2022-01-11 19:14] LABS: Appearance CLEAR (CLEAR); Bilirubin NEGATIVE (NEGATIVE); Glucose NEGATIVE (NEGATIVE); Ketones TRACE (NEGATIVE); Ph 6.5 (5-6); RBC NEGATIVE Ery/ul (0-5)
[2022-01-11 19:15] LABS: Dipstick done @ ? MAIN LAB; Nitrite NEGATIVE (NEGATIVE); Protein,Urine Dip NEGATIVE (Negative); Urine Cultured Indicated? NO; Urobilinogen 0.2 mg/dL (0-1)
--- NOTE | 2022-01-11 19:17 | ERPHSYRPT ---
- History of Present Illness Time Seen by Provider: 01/11/22 17:57 Historian: patient Exam Limitations: no limitations Patient Subjective Stated Complaint: C/O abdominal pain that started this morning. Pain is not localized to one specific area of his abdomen, pain is acro ss entire abdomen. Triage Nursing Assessment: Patient ambulated back to ED with a hunched gait. Patient is alert and oriented. No SOB. Patient becomes very tense, jerks forward in bed, and abdomen becomes rigid when attempting to palpate abdomen with slight pressure. Bowel sounds present. Physician History: 66-year-old male with recent colonic resection anastomosis secondary to diverticulitis at [facility] earlier in November presented in the ER with generalized abdominal pain more in the periumbilical area moderate to severe sharp, comes and goes, without any significant aggravating or relieving factors. Associated with nausea and diarrhea but no vomiting. No fever or chills reported. Timing/Duration: today, gradual onset Activities at Onset: rest Quality: sharpness Abdominal Pain Onset Location: generalized abdomen Pain Radiation: no radiation Severity of Pain-Max: moderate Severity of Pain-Current: moderate Modifying Factors: Worsens With: vomiting Associated Symptoms: diarrhea, nausea, No shortness of breath, No vomiting Previous symptoms: no prior history Allergies/Adverse Reactions: Penicillins Allergy (Severe, Verified 01/11/22 18:04) STOPPED BREATHING Sulfa (Sulfonamide Antibiotics) [Sulfa(Sulfonamide Antibiotics)] Allergy (Severe, Verified 01/11/22 18:04) STOPPED BREATHING morphine Allergy (Intermediate, Verified 01/11/22 18:04) hives, vomiting hydrocodone Adverse Reaction (Mild, Verified 01/11/22 18:04) hives, nausea lidocaine Adverse Reaction (Mild, Verified 01/11/22 18:04) Hives Hx Tetanus, Diphtheria Vaccination/Date Given: Yes Hx Influenza Vaccination/Date Given: Yes Hx Pneumococcal Vaccination/Date Given: No Immunizations Up to Date: Yes Travel Risk - International Travel Have you traveled outside of the country in past 3 weeks: No - Coronavirus Screening Are you exhibiting any of the following symptoms?: Yes Symptoms: Vomiting/Diarrhea Close contact with a COVID-19 positive Pt in past 14-21 Days: No - Vaccine Status Have you recieved a Covid-19 vaccination: Yes 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[employer]: [employer] - Vaccination Dates Date of 2cond Vaccination (if applicable): 2020 - Review of Systems Constitutional: No Symptoms Eyes: No Symptoms Ears, Nose, & Throat: No Symptoms Respiratory: No Symptoms Cardiac: No Symptoms Abdominal/Gastrointestinal: Abdominal Pain, Nausea, Diarrhea Genitourinary Symptoms: No Symptoms Musculoskeletal: No Symptoms Skin: No Symptoms Neurological: No Symptoms Psychological: No Symptoms Endocrine: No Symptoms Hematologic/Lymphatic: No Symptoms Immunological/Allergic: No Symptoms - Past Medical History Pertinent Past Medical History: Yes Neurological History: No Pertinent History ENT History: No Pertinent History Cardiac History: No Pertinent History Respiratory History: Bronchitis Endocrine Medical History: No Pertinent History Musculoskeletal History: Osteoarthritis GI Medical History: Diverticulitis History: No Pertinent History Psycho-Social History: No Pertinent History Male Reproductive Disorders: No Pertinent History - Past Surgical History Past Surgical History: Yes Neuro Surgical History: No Pertinent History Cardiac: No Pertinent History Respiratory: No Pertinent History Gastrointestinal: Cholecystectomy, Hemorrhoidectomy Genitourinary: No Pertinent History Musculoskeletal: Orthopedic Surgery Male Surgical History: Vasectomy Other Surgical History: neck disc replaced, bilateral knee scope, approx 6 inches of colon removed in November of 2021 related to diverticulitis - Social History Smoking Status: Former smoker How long have you smoked: 2-5years Exposure to second hand smoke: No Drug Use: none Patient Lives Alone: No - Nursing Vital Signs Nursing Vital Signs: Initial Vital Signs Temperature 97.3 F 01/11/22 18:05 Pulse Rate 88 01/11/22 18:05 Respiratory Rate 18 01/11/22 18:05 Blood Pressure 156/84 01/11/22 18:05 O2 Sat by Pulse Oximetry 99 01/11/22 18:05 Pain Scale Pain Intensity 5 - Physical Exam General Appearance: no apparent distress, alert Eye Exam: PERRL/EOMI Ears, Nose, Throat Exam: normal ENT inspection Neck Exam: normal inspection, full range of motion Respiratory Exam: normal breath sounds, lungs clear Cardiovascular Exam: regular rate/rhythm, normal heart sounds Gastrointestinal/Abdomen Exam: soft, normal bowel sounds, tenderness (Generalized), guarding Back Exam: normal inspection, normal range of motion Extremity Exam: normal inspection, normal range of motion Neurologic Exam: alert, oriented x 3, cooperative Skin Exam: normal color SpO2 Interpretation: normal SpO2: 99 O2 Delivery: Room Air Ordered Tests: Active Orders 24 hr Category Date Time Status IV Insertion STAT Care 01/11/22 18:53 Active NPO (ED) STAT Care 01/11/22 18:53 Active ABDOMEN AND PELVIS W CONTRAST [CT] Stat Exams 01/11/22 18:53 Taken CBC W DIFF Stat Lab 01/11/22 18:30 Completed CMP Stat Lab 01/11/22 18:30 Completed LIPASE Stat Lab 01/11/22 18:30 Completed Lactic Acid Stat Lab 01/11/22 19:30 Completed UA W/RFX CULTURE Stat Lab 01/11/22 18:55 Completed Medication Summary Discontinued Medications Generic Name Dose Route Start Last Admin Trade Name Freq PRN Reason Stop Dose Admin Sodium Chloride 1,000 mls @ 999 mls/hr 01/11/22 18:53 01/11/22 19:48 Sodium Chloride 0.9% 1000 Ml IV 01/11/22 19:53 999 mls/hr .Q1H1M STA Administration Sodium Chloride Confirm 01/11/22 19:46 Sodium Chloride 0.9% 1000 Ml Administered 01/11/22 19:47 Dose 1,000 mls @ ud .ROUTE .STK-MED ONE Ketorolac Tromethamine 30 mg 01/11/22 18:30 01/11/22 18:36 Ketorolac Tromethamine 30 Mg/Ml Inj IV 01/11/22 18:31 30 mg STAT ONE Administration Ketorolac Tromethamine Confirm 01/11/22 18:32 Ketorolac Tromethamine 30 Mg/Ml Inj Administered 01/11/22 18:33 Dose 30 mg .ROUTE .STK-MED ONE Ondansetron HCl 4 mg 01/11/22 18:53 01/11/22 19:48 Ondansetron Hcl 4 Mg/2 Ml Vial IV 01/11/22 18:54 4 mg STAT ONE Administration Ondansetron HCl Confirm 01/11/22 19:46 Ondansetron Hcl 4 Mg/2 Ml Vial Administered 01/11/22 19:47 Dose 4 mg .ROUTE .STK-MED ONE Lab/Rad Data: Laboratory Result Diagrams 01/11/22 18:30 01/11/22 18:30 Laboratory Results 01/11/22 01/11/22 01/11/22 Range/Units 19:30 18:55 18:30 WBC (4.0-10.5) x10^3/uL RBC (4.1-5.6) x10^6/uL Hgb (12.5-18.0) g/dL Hct (42-50) % MCV (78-100) fL MCH (26-32) pg MCHC (32-36) g/dL RDW (11.5-14.0) % Plt Count (150-450) x10^3/uL MPV (7.5-11.0) fL Gran % (36.0-66.0) % Immature Gran % (Auto) (0.00-0.4) % Nucleat RBC Rel Count (0.00-0.1) % Eos # (Auto) (0-0.5) x10^3/uL Immature Gran # (Auto) (0.00-0.03) x10^3u/L Absolute Lymphs (auto) (1.0-4.6) x10^3/uL Absolute Monos (auto) (0.0-1.3) x10^3/uL Absolute Nucleated RBC (0.00-0.01) x10^3u/L Lymphocytes % (24.0-44.0) % Monocytes % (0.0-12.0) % Eosinophils % (0.00-5.0) % Basophils % (0.0-0.4) % Absolute Granulocytes (1.4-6.9) x10^3/uL Basophils # (0-0.4) x10^3/uL Sodium 135 L (137-145) mmol/L Potassium 3.7 (3.5-5.1) mmol/L Chloride 101 (98-107) mmol/L Carbon Dioxide 29 (22-30) mmol/L Anion Gap 9.4 (5-15) MEQ/L BUN 11 (9-20) mg/dL Creatinine 0.73 (0.66-1.25) mg/dL Estimated GFR > 60.0 ML/MIN Glucose 86 (74-106) mg/dL Lactic Acid 1.3 (0.4-2.0) Calcium 9.5 (8.4-10.2) mg/dL Total Bilirubin 0.60 (0.2-1.3) mg/dL AST 32 (17-59) U/L ALT 44 (0-50) U/L Alkaline Phosphatase 76 (38-126) U/L Serum Total Protein 7.8 (6.3-8.2) g/dL Albumin 4.7 (3.5-5.0) g/dL Lipase 380 H (23-300) U/L Urinalys Dipstick Clnc MAIN LAB Urine Color YELLOW (YELLOW) Urine Appearance CLEAR (CLEAR) Urine pH 6.5 (5-6) Ur Specific [place] 1.010 (1.005-1.025) POC Urine Protein Conf NEGATIVE (Negative) Urine Ketones TRACE A (NEGATIVE) Urine Nitrite NEGATIVE (NEGATIVE) Urine Bilirubin NEGATIVE (NEGATIVE) Urine Urobilinogen 0.2 (0-1) mg/dL Urine Leukocytes NEGATIVE (NEGATIVE) Urine WBC (Auto) NONE (0-5) /HPF Urine RBC (Auto) NONE (0-2) /HPF U Epithel Cells (Auto) NONE (FEW) /HPF Urine Bacteria (Auto) NONE (NEGATIVE) /HPF Urine RBC NEGATIVE (0-5) Henry/ul Ur Culture Indicated? NO Urine Glucose NEGATIVE (NEGATIVE) mg/dL 01/11/22 Range/Units 18:30 WBC 4.6 (4.0-10.5) x10^3/uL RBC 5.01 (4.1-5.6) x10^6/uL Hgb 14.8 (12.5-18.0) g/dL Hct 44.2 (42-50) % MCV 88.2 (78-100) fL MCH 29.5 (26-32) pg MCHC 33.5 (32-36) g/dL RDW 12.2 (11.5-14.0) % Plt Count 180 (150-450) x10^3/uL MPV 9.7 (7.5-11.0) fL Gran % 64.7 (36.0-66.0) % Immature Gran % (Auto) 0.2 (0.00-0.4) % Nucleat RBC Rel Count 0.0 (0.00-0.1) % Eos # (Auto) 0.10 (0-0.5) x10^3/uL Immature Gran # (Auto) 0.01 (0.00-0.03) x10^3u/L Absolute Lymphs (auto) 0.73 L (1.0-4.6) x10^3/uL Absolute Monos (auto) 0.77 (0.0-1.3) x10^3/uL Absolute Nucleated RBC 0.00 (0.00-0.01) x10^3u/L Lymphocytes % 15.7 L (24.0-44.0) % Monocytes % 16.6 H (0.0-12.0) % Eosinophils % 2.2 (0.00-5.0) % Basophils % 0.6 (0.0-0.4) % Absolute Granulocytes 3.00 (1.4-6.9) x10^3/uL Basophils # 0.03 (0-0.4) x10^3/uL Sodium (137-145) mmol/L Potassium (3.5-5.1) mmol/L Chloride (98-107) mmol/L Carbon Dioxide (22-30) mmol/L Anion Gap (5-15) MEQ/L BUN (9-20) mg/dL Creatinine (0.66-1.25) mg/dL Estimated GFR ML/MIN Glucose (74-106) mg/dL Lactic Acid (0.4-2.0) Calcium (8.4-10.2) mg/dL Total Bilirubin (0.2-1.3) mg/dL AST (17-59) U/L ALT (0-50) U/L Alkaline Phosphatase (38-126) U/L Serum Total Protein (6.3-8.2) g/dL Albumin (3.5-5.0) g/dL Lipase (23-300) U/L Urinalys Dipstick Clnc Urine Color (YELLOW) Urine Appearance (CLEAR) Urine pH (5-6) Ur Specific [place] (1.005-1.025) POC Urine Protein Conf (Negative) Urine Ketones (NEGATIVE) Urine Nitrite (NEGATIVE) Urine Bilirubin (NEGATIVE) Urine Urobilinogen (0-1) mg/dL Urine Leukocytes (NEGATIVE) Urine WBC (Auto) (0-5) /HPF Urine RBC (Auto) (0-2) /HPF U Epithel Cells (Auto) (FEW) /HPF Urine Bacteria (Auto) (NEGATIVE) /HPF Urine RBC (0-5) Henry/ul Ur Culture Indicated? Urine Glucose (NEGATIVE) mg/dL - Progress Progress: improved Progress Note: 01/11/22 21:35 Is given fluids and Toradol for symptomatic relief, on reevaluation patient is feeling much better. No peritoneal signs on repeated evaluation. Has normal white count, unremarkable chemistries. CT showed stable anastomosis with mild left-sided fat stranding which could be fat necrosis but no obstruction, bowel dilatation or any other acute intra-abdominal findings. Recommended outpatient follow-up with his primary surgeon in [facility]. Discussed signs symptoms of worsening needing return to ER which he seems understanding. Counseled pt/family regarding: lab results, diagnosis, need for follow-up, rad results - Departure Departure Disposition: Home Clinical Impression: Postoperative abdominal pain Condition: Stable Critical Care Time: No Referrals: [facility] [Primary Care Provider] - Follow up/PCP as directed (1-2 days for reevaluation) Instructions: Severe Abdominal Pain Additional Instructions: Take pain medications which you have at home as recommended. Follow-up with your primary surgeon for reevaluation. Call for appointment in the morning. Return to ER for any worsening of abdominal pain or if develop fever chills, intractable vomiting etc.
[2022-01-11] MEDS ORDERED: Sodium Chloride 0.9% 1000 ML 1,000 ML ONE (19:46)
[2022-01-11] MEDS ORDERED: Zofran 4 MG/2 ML VIAL ONE (19:46)
[2022-01-11 21:30] VITALS: BP 127/78; PULSE 70
[2022-01-11 21:38] VITALS: O2SAT 99
--- NOTE | 2022-01-12 08:46 | XRAY ---
Indication: Abdomen pain, nausea, diarrhea. Status post: reanastomosis 6 weeks ago. Multiple contiguous axial images obtained through the abdomen and pelvis using 80 cc Isovue 370 contrast. Comparison: January 22, 2018 Lung bases again demonstrates left lower lobe fibrosis/scarring. Heart is not enlarged. Noncontrasted stomach and bowel loops nonobstructed. Again mild diffuse scattered colonic fecal debris and colonic diverticulosis throughout. Intact sigmoid anastomosis. Interval cholecystectomy. No free fluid/air. Stable hepatic hemangioma, right renal cyst, and enlarged prostate gland. Remaining liver, pancreas, spleen, adrenal glands, kidneys, ureters, and bladder are unremarkable. Again mild aortoiliac calcifications. No AAA or pathologic retroperitoneal lymphadenopathy. Osseous structures intact again with mild degenerative changes throughout the spine. Impression: 1. Interval cholecystectomy and sigmoid resection without complications. 2. Again mild fecal stasis, colonic diverticulosis, hepatic hemangioma, right renal cyst, enlarged prostate gland, arteriosclerotic disease, and degenerative spondylosis. 3. Remaining CT abdomen/pelvis with contrast exam is negative. Comment: Preliminary interpretation made by [facility]. No critical discrepancy.
== END 2022-01-11 21:53 | disposition home or self-care (01) ==
LOC: ED 17:56
DX: G89.18 Other acute postprocedural pain (principal); R10.33 Periumbilical pain; R11.0 Nausea; R19.7 Diarrhea, unspecified
CPT/HCPCS: 36000; 36415; 74177; 80053; 81015; 83605; 83690; 85025; 96374; 96375; 99284; J1885; J2405